=== PATIENT | male | born 1945 | race Caucasian/White ===

== ENCOUNTER 2019-10-04 16:00 | Inpatient (IN) | payer MEDICARE ==
[~2019-10-04] VITALS: Ht 167.6 cm; Wt 97.4 kg
[2019-10-04] MEDS ORDERED: ASPI-496 PO (16:25)
[2019-10-04 16:56] LABS: INTERNATIONAL NORMALIZED RATIO 0.98 (0.93-1.1); PROTHROMBIN TIME 10.4 Seconds (9.6-11.5)
[2019-10-04 16:57] LABS: ALANINE AMINOTRANSFERASE 29 U/L (12-78); ALBUMIN 3.6 g/dL (3.4-5.0); ANION GAP 5 mmol/L (5-15); CALCIUM 9.8 mg/dL (8.5-10.1); CHLORIDE 106 mmol/L (98-107); CREATININE 1.14 mg/dL (0.7-1.3)
[2019-10-04] MEDS ORDERED: ALTEPLASE 10 MG in SODIUM CHLORIDE 0.9% 240 ML IV ONE (17:00)
[2019-10-04] MEDS ORDERED: PLEASE ENTER ALLERGIES MC SCH (17:00)
[2019-10-04 17:01] LABS: ALKALINE PHOSPHATASE 98 U/L (45-117); BILIRUBIN,TOTAL 0.8 mg/dL (0.2-1.0); TOTAL PROTEIN 7.8 g/dL (6.4-8.2); TROPONIN I 0.084 ng/mL (0.000-0.045)
--- NOTE | 2019-10-04 17:05 | NUR ---
SECOND IV STARTED. DR. SILVA AT BEDSIDE.
[2019-10-04 17:06] LABS: MEAN CORPUSCULAR HEMOGLOBIN 29.7 pg (27.5-34.5); MEAN CORPUSCULAR HGB CONC 32.6 g/dL (33.2-36.2); MEAN CORPUSCULAR VOLUME 91.3 fL (81-97); MEAN PLATELET VOLUME 8.4 fL (7.4-10.4); PLATELET COUNT 257 x10^3/uL (130-400); RED BLOOD COUNT 5.93 x10^6/uL (4.38-5.82); RED CELL DISTRIBUTION WIDTH 14.4 % (9.4-14.8)
[2019-10-04] MEDS ORDERED: FENTANYL PF 100 MCG/2ML ONE (17:16)
[2019-10-04] MEDS ORDERED: MIDAZOLAM 1 MG/ML, 5ML ONE (17:16)
[2019-10-04] MEDS ORDERED: LIDOCAINE 2%, 20ML ONE (17:16)
[2019-10-04] MEDS ORDERED: ONDANSETRON 2MG/ML, 2ML IVPush PRN (17:30)
[2019-10-04 17:49] LABS: BASOPHILS # (AUTO) 0.06 x10^3/uL (0-0.1); BASOPHILS % (AUTO) 0 % (0-1); EOSINOPHILS # (AUTO) 0.14 x10^3/uL (0-0.4); EOSINOPHILS % (AUTO) 1 % (1-7); LYMPHOCYTES # (AUTO) 4.15 x10^3/uL (1-3.4); LYMPHOCYTES % (AUTO) 27 % (22-44); MD SCAN; MONOCYTES % (AUTO) 10 % (2-9); NEUTROPHILS # (AUTO) 9.68 x10^3/uL (1.8-6.8); NEUTROPHILS % (AUTO) 62 % (42-75)
[2019-10-04] MEDS ORDERED: SODIUM CHLORIDE 0.9% 1,000 ML IV SCH (18:15)
[2019-10-04] MEDS ORDERED: HYDROcodone/APAP 5/325 TABLET PO PRN (18:30)
[2019-10-04] MEDS ORDERED: SODIUM CHLORIDE FLUSH 3ML SYRINGE IVF PRN (18:30)
[2019-10-04] MEDS: PLEASE ENTER ALLERGIES MC SCH ×3 (19:30→20:45)
[2019-10-04] MEDS ORDERED: AMLO10TA8 PO (20:17)
[2019-10-04] MEDS ORDERED: RIVAROXABAN 20 MG TABLET PO SCH (23:55)
[2019-10-05 00:44] LABS: BASOPHILS # (AUTO) 0.13 x10^3/uL (0-0.1); BASOPHILS % (AUTO) 1 % (0-1); EOSINOPHILS # (AUTO) 0.09 x10^3/uL (0-0.4); EOSINOPHILS % (AUTO) 1 % (1-7); LYMPHOCYTES # (AUTO) 2.23 x10^3/uL (1-3.4); LYMPHOCYTES % (AUTO) 19 % (22-44); MD NO; MEAN CORPUSCULAR HEMOGLOBIN 30.1 pg (27.5-34.5); MEAN CORPUSCULAR HGB CONC 33.2 g/dL (33.2-36.2); MEAN CORPUSCULAR VOLUME 90.7 fL (81-97); MEAN PLATELET VOLUME 8.1 fL (7.4-10.4); MONOCYTES % (AUTO) 10 % (2-9); NEUTROPHILS # (AUTO) 8.36 x10^3/uL (1.8-6.8); NEUTROPHILS % (AUTO) 70 % (42-75); PLATELET COUNT 199 x10^3/uL (130-400); RED BLOOD COUNT 5.39 x10^6/uL (4.38-5.82); RED CELL DISTRIBUTION WIDTH 14.1 % (9.4-14.8)
[2019-10-05 06:49] LABS: BASOPHILS # (AUTO) 0.04 x10^3/uL (0-0.1); BASOPHILS % (AUTO) 0 % (0-1); EOSINOPHILS # (AUTO) 0.14 x10^3/uL (0-0.4); EOSINOPHILS % (AUTO) 1 % (1-7); LYMPHOCYTES # (AUTO) 2.71 x10^3/uL (1-3.4); LYMPHOCYTES % (AUTO) 24 % (22-44); MD NO; MEAN CORPUSCULAR HEMOGLOBIN 29.8 pg (27.5-34.5); MEAN CORPUSCULAR HGB CONC 32.4 g/dL (33.2-36.2); MEAN CORPUSCULAR VOLUME 92.1 fL (81-97); MEAN PLATELET VOLUME 7.9 fL (7.4-10.4); MONOCYTES # (AUTO) 1.28 x10^3/uL (0.2-0.8); MONOCYTES % (AUTO) 12 % (2-9); NEUTROPHILS # (AUTO) 6.99 x10^3/uL (1.8-6.8); NEUTROPHILS % (AUTO) 63 % (42-75); PLATELET COUNT 221 x10^3/uL (130-400); RED BLOOD COUNT 5.48 x10^6/uL (4.38-5.82); RED CELL DISTRIBUTION WIDTH 14.1 % (9.4-14.8)
[2019-10-05 06:58] LABS: ALANINE AMINOTRANSFERASE 24 U/L (12-78); ALBUMIN 3.1 g/dL (3.4-5.0); ANION GAP 8 mmol/L (5-15); CALCIUM 8.7 mg/dL (8.5-10.1); CHLORIDE 108 mmol/L (98-107); CREATININE 0.89 mg/dL (0.7-1.3)
[2019-10-05 07:00] LABS: ALKALINE PHOSPHATASE 82 U/L (45-117)
[2019-10-05] MEDS: RIVAROXABAN 15 MG TABLET PO SCH ×2 (11:13→17:21)
[2019-10-05 13:32] LABS: BASOPHILS # (AUTO) 0.11 x10^3/uL (0-0.1); BASOPHILS % (AUTO) 1 % (0-1); EOSINOPHILS # (AUTO) 0.22 x10^3/uL (0-0.4); EOSINOPHILS % (AUTO) 2 % (1-7); LYMPHOCYTES # (AUTO) 2.64 x10^3/uL (1-3.4); LYMPHOCYTES % (AUTO) 23 % (22-44); MD NO; MEAN CORPUSCULAR HEMOGLOBIN 30.3 pg (27.5-34.5); MEAN CORPUSCULAR HGB CONC 33.1 g/dL (33.2-36.2); MEAN CORPUSCULAR VOLUME 91.4 fL (81-97); MEAN PLATELET VOLUME 8.1 fL (7.4-10.4); MONOCYTES # (AUTO) 1.05 x10^3/uL (0.2-0.8); MONOCYTES % (AUTO) 9 % (2-9); NEUTROPHILS % (AUTO) 65 % (42-75); PLATELET COUNT 228 x10^3/uL (130-400); RED BLOOD COUNT 5.43 x10^6/uL (4.38-5.82)
[2019-10-05 13:45] VITALS: BP 110/72
[2019-10-05 15:50] VITALS: BP 112/75
[2019-10-05 20:57] VITALS: BP 106/69
[2019-10-06 02:58] VITALS: BP 106/75
[2019-10-06 05:30] LABS: BASOPHILS # (AUTO) 0.11 x10^3/uL (0-0.1); BASOPHILS % (AUTO) 1 % (0-1); EOSINOPHILS # (AUTO) 0.25 x10^3/uL (0-0.4); EOSINOPHILS % (AUTO) 2 % (1-7); LYMPHOCYTES # (AUTO) 2.68 x10^3/uL (1-3.4); LYMPHOCYTES % (AUTO) 21 % (22-44); MD NO; MEAN CORPUSCULAR HEMOGLOBIN 29.9 pg (27.5-34.5); MEAN CORPUSCULAR HGB CONC 32.7 g/dL (33.2-36.2); MEAN CORPUSCULAR VOLUME 91.7 fL (81-97); MEAN PLATELET VOLUME 8.3 fL (7.4-10.4); MONOCYTES # (AUTO) 1.44 x10^3/uL (0.2-0.8); MONOCYTES % (AUTO) 12 % (2-9); NEUTROPHILS # (AUTO) 8.02 x10^3/uL (1.8-6.8); NEUTROPHILS % (AUTO) 64 % (42-75); PLATELET COUNT 225 x10^3/uL (130-400); RED BLOOD COUNT 5.34 x10^6/uL (4.38-5.82); RED CELL DISTRIBUTION WIDTH 13.7 % (9.4-14.8)
[2019-10-06 05:44] LABS: ANION GAP 6 mmol/L (5-15); CALCIUM 9.1 mg/dL (8.5-10.1); CHLORIDE 107 mmol/L (98-107)
[2019-10-06 05:50] LABS: ALANINE AMINOTRANSFERASE 24 U/L (12-78); ALKALINE PHOSPHATASE 79 U/L (45-117); BILIRUBIN,TOTAL 0.4 mg/dL (0.2-1.0); CREATININE 1.02 mg/dL (0.7-1.3); TOTAL PROTEIN 6.8 g/dL (6.4-8.2)
[2019-10-06 07:00] VITALS: BP 109/76
[2019-10-06] MEDS: RIVAROXABAN 15 MG TABLET PO SCH ×2 (09:09→17:52)
[2019-10-06] MEDS ORDERED: SENNA/DOCUSATE TABLET ONE (11:08)
[2019-10-06] MEDS ORDERED: SENNA/DOCUSATE TABLET PO SCH (11:30)
[2019-10-06 12:47] VITALS: BP 111/77
[2019-10-06 18:22] LABS: OCCULT BLOOD NEGATIVE (NEGATIVE)
[2019-10-06 20:35] VITALS: BP 133/90
[2019-10-07 01:05] VITALS: BP 109/74
[2019-10-07 05:50] LABS: BASOPHILS # (AUTO) 0.06 x10^3/uL (0-0.1); BASOPHILS % (AUTO) 1 % (0-1); EOSINOPHILS # (AUTO) 0.31 x10^3/uL (0-0.4); EOSINOPHILS % (AUTO) 2 % (1-7); LYMPHOCYTES # (AUTO) 2.66 x10^3/uL (1-3.4); LYMPHOCYTES % (AUTO) 21 % (22-44); MD NO; MEAN CORPUSCULAR HEMOGLOBIN 29.6 pg (27.5-34.5); MEAN CORPUSCULAR VOLUME 92.5 fL (81-97); MEAN PLATELET VOLUME 8.2 fL (7.4-10.4); MONOCYTES # (AUTO) 1.29 x10^3/uL (0.2-0.8); MONOCYTES % (AUTO) 10 % (2-9); NEUTROPHILS # (AUTO) 8.68 x10^3/uL (1.8-6.8); NEUTROPHILS % (AUTO) 67 % (42-75); PLATELET COUNT 232 x10^3/uL (130-400); RED CELL DISTRIBUTION WIDTH 13.9 % (9.4-14.8)
[2019-10-07 05:52] LABS: ANION GAP 6 mmol/L (5-15); CALCIUM 9.1 mg/dL (8.5-10.1); CHLORIDE 109 mmol/L (98-107)
[2019-10-07 05:53] LABS: CREATININE 0.88 mg/dL (0.7-1.3)
[2019-10-07] MEDS: ACETAMINOPHEN 325 MG TABLET PO PRN (06:23)
[2019-10-07 06:52] VITALS: BP 114/73
[2019-10-07] MEDS: SENNA/DOCUSATE TABLET PO SCH ×3 (09:00→20:03)
[2019-10-07] MEDS: POLYETHYLENE GLYCOL 17 GM PACKET NG SCH (09:55)
[2019-10-07] MEDS: RIVAROXABAN 15 MG TABLET PO SCH ×2 (09:55→17:08)
[2019-10-07 12:06] VITALS: BP 122/82
[2019-10-07 19:31] VITALS: BP 127/81
[2019-10-08 00:28] VITALS: BP 103/66
[2019-10-08 06:05] LABS: BASOPHILS # (AUTO) 0.08 x10^3/uL (0-0.1); BASOPHILS % (AUTO) 1 % (0-1); EOSINOPHILS # (AUTO) 0.42 x10^3/uL (0-0.4); EOSINOPHILS % (AUTO) 4 % (1-7); LYMPHOCYTES % (AUTO) 23 % (22-44); MD NO; MEAN CORPUSCULAR HEMOGLOBIN 29.8 pg (27.5-34.5); MEAN CORPUSCULAR HGB CONC 32.2 g/dL (33.2-36.2); MEAN CORPUSCULAR VOLUME 92.5 fL (81-97); MEAN PLATELET VOLUME 7.9 fL (7.4-10.4); MONOCYTES # (AUTO) 1.05 x10^3/uL (0.2-0.8); MONOCYTES % (AUTO) 9 % (2-9); NEUTROPHILS # (AUTO) 7.49 x10^3/uL (1.8-6.8); NEUTROPHILS % (AUTO) 64 % (42-75); PLATELET COUNT 259 x10^3/uL (130-400)
[2019-10-08] MEDS: RIVAROXABAN 15 MG TABLET PO SCH ×2 (07:31→17:30)
[2019-10-08 07:51] VITALS: BP 121/86
[2019-10-08] MEDS: POLYETHYLENE GLYCOL 17 GM PACKET NG SCH (09:00)
[2019-10-08] MEDS: SENNA/DOCUSATE TABLET PO SCH ×2 (09:00→21:00)
[2019-10-08] MEDS: ACETAMINOPHEN 325 MG TABLET PO PRN (10:37)
[2019-10-08 12:50] VITALS: BP 115/81
[2019-10-08 21:31] VITALS: BP 108/73
[2019-10-09 00:34] VITALS: BP 131/86
[2019-10-09] MEDS: ACETAMINOPHEN 325 MG TABLET PO PRN (05:37)
[2019-10-09 06:27] VITALS: BP 121/87
[2019-10-09] MEDS: RIVAROXABAN 15 MG TABLET PO SCH (08:24)
[2019-10-09] MEDS: POLYETHYLENE GLYCOL 17 GM PACKET NG SCH (08:24)
[2019-10-09] MEDS: SENNA/DOCUSATE TABLET PO SCH (08:24)
[2019-10-09] MEDS ORDERED: RIVA15TA PO (11:47)
[2019-10-09] MEDS ORDERED: POLY17PO5 NG (11:47)
[2019-10-09] MEDS ORDERED: AMLO10TA8 PO (11:47)
[2019-10-09 11:52] LABS: FIO2 ROOM AIR %
[2019-10-09 12:43] VITALS: BP 134/97
== END 2019-10-09 14:00 | disposition home or self-care (01) | DRG 175 ==
LOC: ED 16:43 → SUATTDRO 17:09 → EDIP 17:32 → CCU 18:34 → 5SO 10-05 15:49 → DCLOUNGE 10-09 13:33
PROVIDERS: ADMIT Internal Medicine; ATTEND Internal Medicine
PROC: 3E06317 Introduction of Other Thrombolytic into Central Artery, Percutaneous Approach (ICD-10-PCS; 2019-10-04)
PROC: B54BZZA Ultrasonography of Right Lower Extremity Veins, Guidance (ICD-10-PCS; 2019-10-04)
PROC: B2141ZZ Fluoroscopy of Right Heart using Low Osmolar Contrast (ICD-10-PCS; 2019-10-04)
PROC: 4A033B3 Measurement of Arterial Pressure, Pulmonary, Percutaneous Approach (ICD-10-PCS; 2019-10-04)
PROC: 4A033B3 Measurement of Arterial Pressure, Pulmonary, Percutaneous Approach (ICD-10-PCS; principal; 2019-10-09)
DX: I26.99 Other pulmonary embolism without acute cor pulmonale (principal); J96.01 Acute respiratory failure with hypoxia; I82.439 Acute embolism and thrombosis of unspecified popliteal vein; R65.10 Systemic inflammatory response syndrome (SIRS) of non-infectious origin without acute organ dysfunction; R00.0 Tachycardia, unspecified; D72.829 Elevated white blood cell count, unspecified; Z82.49 Family history of ischemic heart disease and other diseases of the circulatory system; Z87.891 Personal history of nicotine dependence; I10 Essential (primary) hypertension; I25.10 Atherosclerotic heart disease of native coronary artery without angina pectoris; Z79.01 Long term (current) use of anticoagulants; Z80.42 Family history of malignant neoplasm of prostate; Z96.611 Presence of right artificial shoulder joint
CPT/HCPCS: 36415; 36600; 37211; 80048; 80053; 82272; 82803; 83036; 83735; 83880; 84100; 84484; 85025; 85384; 85520; 85610; 87081; 93005; 93308; 93970; 99156; 99157; C1769; C1894; G0378; J2250; J2997; J3010; J7050; Q9967